=== PATIENT | female | born 1995 | race African-American/Black ===

== ENCOUNTER 2021-03-28 08:18 | Emergency (ER) | payer OTHER, SELFPAY ==
[2021-03-28 08:34] VITALS: BP 132/76; PULSE 87; RESP 16; TEMP 36.3; O2SAT 100; BMI 28.0
--- NOTE | 2021-03-28 08:56 | ED_ITS ---
HPI - URI/Sore Throat General Chief Complaint: Upper Respiratory Symptoms Stated Complaint: covid symptoms-neg test results Time Seen by Provider: 03/28/21 08:56 Source: patient Mode of arrival: Ambulatory Limitations: no limitations History of Present Illness HPI Narrative: This is a 25-year-old female comes emergency department with complaint of sore throat, cough which has been nonproductive for the past severa l days to week. Patient states she has been afebrile. She has not really had a lot of nasal congestion. She has had a little bit of phlegm from her lower throat that has been clear. She has had a mild dry cough which seems to be irritated when she takes a deep breath but seems to be coming from her throat and from irritation. She denies any chest pressure, she denies any shortness of breath. She denies any chest congestion. She denies any nausea or vomiting. No other GI or urinary symptoms. She does not have any other major medical issues. No prior surgeries. No allergies to medications. She has had COVID swabbing outpatient x2 in the past week. She and her spouse have both had similar symptoms. She comes today as she is find it very hard to sleep secondary to her cough. Related Data Previous Rx's Medication Instructions Recorded benzonatate 100 mg capsule 200 mg PO TID PRN #20 cap 03/28/21 (Michele Corbin) Allergies Allergy/AdvReac Type Severity Reaction Status Date / Time No Known Drug Allergies Allergy Verified 03/28/21 09:09 Review of Systems Review of Systems ROS Unobtainable: All systems reviewed & are unremarkable except as noted in HPI and below Patient History Social History Smoking Status: Never smoker Smoking Status: Never smoker alcohol intake frequency: 0-2 drinks per day Substance Use Type: does not use Exam Narrative Exam Narrative: GEN: well nourished, well appearing female, alert and oriented x 3, patient appears to be in mild distress. HEENT: Atraumatic, pupils are equal round reactive to light, extraocular movements are intact, nares are clear, TMs are clear with no fluid, there is no conjunctival pallor. Throat is clear without any exudates, erythema, bilateral tonsillar enlargement, no uvular deviation, no hoarseness. Patient is swallowing secretions without issues. No stridor. HEART: Regular rate and rhythm without murmur, clicks, rubs. LUNGS:Lungs clear to auscultation, no wheezes, rales, crackles, chest moves symmetrically, no tachypnea accessory muscle use. Patient has a mild dry cough that seems to be worsened by speech. ABD:bowel sounds normal, soft, non-tender, no guarding, rebound, rigidity, no masses noted, no hepatosplenomegaly MSCL: full range of motion NEURO:CN 2-12 intact SKIN: No rash or skin changes appreciated. Initial Vital Signs Initial Vital Signs: Vital Signs Temperature 97.3 F L 03/28/21 08:34 Pulse Rate 87 03/28/21 08:34 Respiratory Rate 16 03/28/21 08:34 Blood Pressure 132/76 03/28/21 08:34 Pulse Oximetry 100 03/28/21 08:34 Course Orders Ordered: Discontinued Medications Dexamethasone (Dexamethasone 10 Mg/Ml Vial) 10 mg PO NOW ONE Stop: 03/28/21 09:04 Last Admin: 03/28/21 09:11 Dose: 10 mg Documented by: ALBERT Vital Signs Vital signs: Vital Signs - 8 hr 03/28/21 08:34 Temperature 97.3 F L Pulse Rate 87 Respiratory Rate 16 Blood Pressure 132/76 Pulse Oximetry 100 MDM - URI/Sore Throat Lab Data Labs: Lab Results 03/28/21 Range/Units 08:30 Chlamy pneumoniae PCR Not detected (Not Detect) Adenovirus (PCR) Not detected (Not Detect) B. pertussis DNA (PCR) Not detected (Not Detecte) B.parapertussis DNA PCR Not detected (Not Detecte) Coronavirus OC43 (PCR) Not detected (Not Detect) Coronavirus HKU1 (PCR) Not detected (Not Detect) Coronavirus 229E (PCR) Not detected (Not Detect) SARS-CoV-2 (PCR) Not detected (Not Detecte) Coronavirus NL63 (PCR) Not detected (Not Detect) Human Metapneumovir PCR Not detected (Not Detect) Influenza Type A (PCR) Not detected (Not Detect) Influenza Type B (PCR) Not detected (Not Detect) M. pneumoniae (PCR) Not detected (Not Detect) Parainfluenza 1 (PCR) Not detected (Not Detect) Parainfluenza 2 (PCR) Not detected (Not Detect) Parainfluenza 3 (PCR) Not detected (Not Detect) Parainfluenza 4 (PCR) Not detected (Not Detect) RSV (PCR) Not detected (Not Detect) Entero/Rhino (PCR) Not detected (Not Detect) Discharge Plan Departure Patient Disposition: Home Clinical Impression: Pharyngitis Instructions: DI for Pharyngitis/Tonsillopharyngitis -- Adult Activity Restrictions/Additional Instructions: Follow up with your physician for recheck appear not continue to have proved of your symptoms over the next week. Your respiratory panel today shows You have been given a single dose of dexamethasone which last 48-72 hours and then sometimes help with the swelling and discomfort in the throat. You may take cough medication as prescribed. Prescription sent to [facility] in [place]. You may try a claritin or similar [id number] antihistamine once daily to see if this helps with any drainage decreases cough. Please return for persistent fevers, difficulty swallowing, shortness of breath, chest pain, lightheadedness or passing out, for having increasing difficulty breathing, persistent vomiting or other new or concerning symptoms. Prescriptions: New benzonatate [Tessalon Perlkaterina] 100 mg capsule 200 mg PO TID PRN (Reason: cough) Qty: 20 RF: 0
[2021-03-28] MEDS: DEXAMETHASONE 10 MG/ML VIAL PO (09:11)
[2021-03-28 09:45] LABS: Adenovirus Not Detected (Not Detect); B. parapertussis Not Detected (Not Detecte); Bordetella pertussis Not Detected (Not Detecte); Chlamydophila pneumoniae Not Detected (Not Detect); Coronavirus 229E Not Detected (Not Detect); Coronavirus HKU1 Not Detected (Not Detect); Coronavirus NL 63 Not Detected (Not Detect); Coronavirus OC43 Not Detected (Not Detect); Human Metapneumovirus Not Detected (Not Detect); Human Rhinovirus/Enterovirus Not Detected (Not Detect); Influenza A Not Detected (Not Detect); Influenza B Not Detected (Not Detect); Mycoplasma pneumoniae Not Detected (Not Detect); Parainfluenza Virus 1 Not Detected (Not Detect); Parainfluenza Virus 2 Not Detected (Not Detect); Parainfluenza Virus 3 Not Detected (Not Detect); Parainfluenza Virus 4 Not Detected (Not Detect); Respiratory Syncytial Virus Not Detected (Not Detect); SARS- CoV-2 Not Detected (Not Detecte)
[2021-03-28 10:09] VITALS: BP 115/75; PULSE 75; RESP 16; O2SAT 98
== END 2021-03-28 10:10 | disposition home or self-care (01) ==
PROVIDERS: Emergency Provider Emergency Medicine
DX: J02.9 Acute pharyngitis, unspecified (principal); Z20.822 Contact with and (suspected) exposure to COVID-19
CPT/HCPCS: 87633; 99283; J1100